=== PATIENT | female | born 1960 | race Caucasian/White ===

== ENCOUNTER 2024-03-13 11:15 | Emergency (ER) | payer MEDICAID ==
[~2024-03-13] VITALS: Ht 157.5 cm; Wt 56.0 kg
[2024-03-13 11:20] VITALS: TEMP 98.2; O2SAT 96
[2024-03-13] MEDS ORDERED: KCL 20MEQ/100ML PREMIX 100 ML IV PRN (11:45)
[2024-03-13] MEDS ORDERED: BLOOD SUGAR DIAGNOSTIC STRIP TEST PRN (11:45)
[2024-03-13] MEDS ORDERED: LACTATED RINGERS 1,000 ML IV SCH (11:45)
[2024-03-13] MEDS ORDERED: MAGNESIUM 2 G PREMIX 50 ML IV PRN (11:45)
[2024-03-13] MEDS ORDERED: DEXTROSE 50% WATER 50ML SYRINGE IV PRN (11:45)
[2024-03-13] MEDS ORDERED: BLOOD SUGAR DIAGNOSTIC STRIP TEST SCH (11:45)
[2024-03-13] MEDS ORDERED: POTASSIUM CHLORIDE 40 MEQ in SODIUM CHLORIDE 0.9% 230 ML IV PRN (11:45)
[2024-03-13] MEDS ORDERED: SODIUM PHOSPHATE 15 MMOL in SODIUM CHLORIDE 0.9% 245 ML IV PRN (11:45)
[2024-03-13] MEDS ORDERED: DEXT 5%/LACTATED RINGERS 1,000 ML IV SCH (11:45)
[2024-03-13 12:07] LABS: BG BASE EXCESS 1.7 mmol/L (-2.0-2.0); BG CARBOXYHEMOGLOBIN 0.1 % (0.5-1.5); BG DEOXYHEMOGLOBIN 0.9 % (0.0-5.0); BG FRACTION INSPIRED OXYGEN 36; BG HCO3 ACT 26.9 mmol/L (22.0-26.0); BG METHEMOGLOBIN 0.3 % (0.0-1.5); BG OXYGEN SATURATION 99.1 % (92.0-98.5); BG OXYHEMOGLOBIN 98.7 % (94.0-97.0); BG PCO2 44.3 mmHg (35.0-45.0); BG PH 7.401 (7.350-7.450); BG SAMPLE SITE RIGHT BRACHIAL; BG TOTAL HEMOGLOBIN 12.4 g/dL (12.0-18.0); BG VENT MODE NASAL CANNULA
[2024-03-13 12:10] LABS: CARBON DIOXIDE 29 mEq/L (21-32); CHLORIDE 101 mEq/L (98-107); POTASSIUM 3.6 mEq/L (3.5-5.1); SODIUM 135 mEq/L (136-145)
[2024-03-13 12:11] LABS: CALCIUM 9.7 mg/dL (8.7-10.4)
[2024-03-13 12:16] LABS: CREATININE 0.7 mg/dL (0.6-1.0); GLUCOSE 174 mg/dL (70-105); UREA NITROGEN BLOOD 26 mg/dL (9-23)
[2024-03-13 12:18] LABS: PHOSPHORUS 4.8 mg/dL (2.5-4.9)
[2024-03-13 14:27] LABS: BASOPHILS % 0.5 % (0.0-2.0); EOSINOPHILS % 0.5 % (0.0-5.0); HEMATOCRIT. 35.1 % (36.0-48.0); HEMOGLOBIN. 11.6 g/dL (12.0-16.0); LYMPHOCYTES % 28.3 % (20.0-50.0); MEAN CORPUSCULAR HEMOGLOBIN 28.5 pg (28.0-32.0); MEAN CORPUSCULAR HGB CONC 33.2 g/dL (31.0-37.0); MEAN CORPUSCULAR VOLUME 85.9 fL (81.0-99.0); MEAN PLATELET VOLUME 9.6 fl (7.4-10.4); MONOCYTES % 8.2 % (2.0-8.0); NEUTROPHILS % 62.5 % (40.0-76.0); PLATELET 227 x1000/uL (130-400); RED BLOOD CELL COUNT 4.08 mill/uL (4.2-5.4); RED CELL DISTRIBUTION WIDTH 12.4 % (11.6-14.6); WHITE BLOOD COUNT 5.5 x1000/uL (4.5-11.0)
[2024-03-13 19:04] VITALS: BP 157/86; PULSE 78; RESP 22
== END 2024-03-13 19:18 | disposition left against medical advice (07) ==
LOC: ER 11:22 → CANBEDREQ 19:18
DX: R53.1 Weakness (principal); E11.9 Type 2 diabetes mellitus without complications; I10 Essential (primary) hypertension; G31.89 Other specified degenerative diseases of nervous system
CPT/HCPCS: 80048; 83735; 83930; 84100; 85025; 36415; 71045; 70450; 82805; 82375; 99291; 36600; Z7610; J3475; J3480; J7120; J7121